=== PATIENT | male | born 2000 | race Two or more races ===

== ENCOUNTER 2023-08-06 11:24 | Emergency (ER) | payer SELFPAY ==
[~2023-08-06] VITALS: Ht 177.8 cm; Wt 88.0 kg
[2023-08-06 11:32] VITALS: TEMP 98.3
[2023-08-06] MEDS: SODIUM CHLORIDE 0.9% 1,000 ML IV ONE (12:13)
[2023-08-06 12:32] LABS: BASOPHILS % (AUTO) 0.2 % (0.0-2.0); EOSINOPHILS % (AUTO) 2.2 % (1.0-6.0); HEMATOCRIT 42.9 % (41-53); HEMOGLOBIN 14.4 g/dL (13.5-17.5); LYMPHOCYTES # (AUTO) 2.1 K/uL (1.0-4.8); LYMPHOCYTES % (AUTO) 19.7 % (22.0-44.0); MEAN CORPUSCULAR HEMOGLOBIN 30.8 pg (26.0-34.0); MEAN CORPUSCULAR HGB CONC 33.6 G/dL (31.0-37.0); MEAN CORPUSCULAR VOLUME 92 fL (80-100); MONOCYTES # (AUTO) 0.5 K/uL (0.1-1.0); MONOCYTES % (AUTO) 5.1 % (2.0-9.0); NEUTROPHILS # (AUTO) 7.9 K/uL (1.8-7.7); NEUTROPHILS % (AUTO) 72.8 % (40.0-70.0); PLATELET COUNT (AUTO) 272 K/uL (150-450); RED BLOOD CELL COUNT(AUTO) 4.68 MIL/uL (4.50-5.90); WHITE BLOOD COUNT (AUTO) 10.9 K/uL (4.5-11.0)
[2023-08-06 12:33] LABS: ANION GAP 9 mmol/L (8-16); CALCIUM, TOTAL 8.8 mg/dL (8.8-10.5); CARBON DIOXIDE 28 mmol/L (22-29); CHLORIDE 105 mmol/L (98-107); CREATININE 0.69 mg/dL (0.60-1.30); GLOMERULAR FILTR. RATE CALC > 60 mL/min (>60); GLUCOSE,RANDOM 91 mg/dL (70-110); POTASSIUM 3.4 mmol/L (3.5-5.1); SODIUM SERUM 142 mmol/L (136-145); UREA NITROGEN, BLOOD 8 mg/dL (7-18)
[2023-08-06] MEDS: LevETIRAcetam 500 MG in DEXTROSE 5%-WATER 100 ML IV ONE (13:06)
[2023-08-06] MEDS: ChlordiazePOXIDE HCL 25 MG CAPSULE PO ONE (13:44)
[2023-08-06] MEDS ORDERED: CHLO25CA6 PO (13:44)
[2023-08-06 14:05] VITALS: BP 126/71; PULSE 74; RESP 16
== END 2023-08-06 14:26 | disposition home or self-care (01) ==
LOC: EMS 11:27
DX: F10.931 Alcohol use, unspecified with withdrawal delirium (principal); Y90.9 Presence of alcohol in blood, level not specified; R56.9 Unspecified convulsions
CPT/HCPCS: 99285; 96365; 70450; 96361; 80048; 85025; 36415; 93005; 96368; J0712; J7060; J7030

== ENCOUNTER 2024-09-22 11:00 | Inpatient (IN) | payer SELFPAY ==
[~2024-09-22] VITALS: Ht 175.3 cm; Wt 89.4 kg
[~2024-09-22 11:00] MED LIST: CHLO25CA6 PO
[2024-09-22] MEDS: LORazepam 2 MG/ML VIAL IM ONE (11:23)
[2024-09-22 11:43] LABS: PH,URINE DRUG SCREEN 5.5 (5.0-8.0)
[2024-09-22 11:49] LABS: ALCOHOL, URINE DRUG SCREEN POSITIVE (NEGATIVE); AMPHET/METH SCREEN,URINE NEGATIVE (NEGATIVE); BARBITURATE SCREEN, URINE NEGATIVE (NEGATIVE); CANNABINOID SCREEN,URINE POSITIVE (NEGATIVE); COCAINE SCREEN,URINE POSITIVE (NEGATIVE); METHADONE SCREEN, URINE NEGATIVE (NEGATIVE)
[2024-09-22] MEDS: LevETIRAcetam 1,000 MG in DEXTROSE 5%-WATER 100 ML IV ONE (12:18)
[2024-09-22 12:22] LABS: PLATELET COUNT (AUTO) 292 K/uL (150-450); RED BLOOD CELL COUNT(AUTO) 4.65 MIL/uL (4.50-5.90); RED CELL DISTRIBUTION WIDTH 12.8 % (11.5-14.5); WHITE BLOOD COUNT (AUTO) 10.0 K/uL (4.5-11.0)
[2024-09-22 12:32] LABS: CALCIUM, TOTAL 9.1 mg/dL (8.8-10.5); CREATININE 0.97 mg/dL (0.60-1.30); GLOMERULAR FILTR. RATE CALC > 60 mL/min (>60); GLUCOSE,RANDOM 81 mg/dL (70-110); SODIUM SERUM 144 mmol/L (136-145); UREA NITROGEN, BLOOD 12 mg/dL (7-18)
[2024-09-22] MEDS: KETAMINE HCL 50 MG/ML 10 ML VIAL IM ONE (12:33)
[2024-09-22] MEDS: SODIUM CHLORIDE 0.9% 1,000 ML IV ONE (12:33)
[2024-09-22 12:39] LABS: TROPONIN I-HIGH SENSITIVITY 4 ng/L (<76)
[2024-09-22] MEDS ORDERED: MAGNESIUM HYDROXIDE SUSPENSION 30 ML UDCUP PO PRN (12:45)
[2024-09-22] MEDS ORDERED: ACETAMINOPHEN 325 MG TABLET PO PRN (12:45)
[2024-09-22] MEDS ORDERED: LORazepam 2 MG/ML VIAL IVP PRN (12:45)
[2024-09-22] MEDS ORDERED: BISACODYL 10 MG RECTAL RECTAL SUPPOSITORY PR PRN (12:45)
[2024-09-22] MEDS: PANTOPRAZOLE SODIUM 40 MG/VIAL IVP SCH (13:12)
[2024-09-22 18:35] VITALS: BP 125/96; PULSE 83; RESP 19; TEMP 97.7; O2SAT 100
[2024-09-22 19:37] VITALS: BP 113/70; PULSE 73; RESP 18; TEMP 98.2; O2SAT 99
[2024-09-23 04:00] VITALS: BP 113/59; PULSE 58; RESP 18; TEMP 97.5; O2SAT 98
[2024-09-23 07:11] VITALS: BP 129/61; PULSE 94; RESP 18; TEMP 98.1; O2SAT 97
[2024-09-23] MEDS ORDERED: LEVE-71 PO (10:43)
== END 2024-09-23 11:50 | disposition home or self-care (01) | DRG 100 ==
LOC: EMS 11:00 → EDH 12:42 → 5S 17:59
PROVIDERS: ADMIT Internal Medicine; ATTEND Internal Medicine
DX: R56.9 Unspecified convulsions (principal); G92.9 Unspecified toxic encephalopathy; F10.10 Alcohol abuse, uncomplicated; F14.10 Cocaine abuse, uncomplicated; Y90.9 Presence of alcohol in blood, level not specified; F20.9 Schizophrenia, unspecified; Z78.1 Physical restraint status; Z91.199 Patient's noncompliance with other medical treatment and regimen due to unspecified reason
CPT/HCPCS: 71045; 80048; 80307; 84484; 85025; 85610; 96361; 96372; 96374; 99285; G0480; J0712; J1200; J1630; J2060; J2470; J3490; J7060; 36415-L1; 36415-TC